=== PATIENT | male | born 1945 | race Caucasian/White ===

== ENCOUNTER 2017-12-11 04:25 | Emergency (ER) | payer MEDICARE ==
[~2017-12-11 04:25] MED LIST: ASPI-555 PO; ATOR80TA PO; FURO20TA4 PO; METF500T6 PO; METO-408 PO; VALS80TA2 PO
[2017-12-11] MEDS ORDERED: TETANUS/DIPHTHERIA TOXOID [ADULT] 0.5 ML VIAL IM ONE (05:04)
[2017-12-11] MEDS ORDERED: LIDOCAINE HCL 2% 20ML ONE (06:27)
== END 2017-12-11 07:47 | disposition home or self-care (01) ==
LOC: EDH 04:25
DX: S01.21XA Laceration without foreign body of nose, initial encounter (principal); S81.011A Laceration without foreign body, right knee, initial encounter; S80.212A Abrasion, left knee, initial encounter; E11.9 Type 2 diabetes mellitus without complications; I10 Essential (primary) hypertension; I25.10 Atherosclerotic heart disease of native coronary artery without angina pectoris; Z95.818 Presence of other cardiac implants and grafts; W18.39XA Other fall on same level, initial encounter; Y93.01 Activity, walking, marching and hiking; Y92.89 Other specified places as the place of occurrence of the external cause; Y99.8 Other external cause status
CPT/HCPCS: 12001; 12011; 70450; 70486; 71045; 72125; 90471; 90714; 99284; J3490

== ENCOUNTER → 2017-12-12 | Outpatient (CLI) | payer MEDICARE | END | disposition home or self-care (01) | LOC: RAH 15:49 | PROVIDERS: ATTEND Internal Medicine | DX: S80.01XA Contusion of right knee, initial encounter (principal); I70.90 Unspecified atherosclerosis; M17.11 Unilateral primary osteoarthritis, right knee; I10 Essential (primary) hypertension; E11.9 Type 2 diabetes mellitus without complications; E78.5 Hyperlipidemia, unspecified; X58.XXXA Exposure to other specified factors, initial encounter; Y93.89 Activity, other specified; Y92.89 Other specified places as the place of occurrence of the external cause; Y99.8 Other external cause status | CPT/HCPCS: 73562 ==

== ENCOUNTER 2017-12-19 00:58 | Emergency (ER) | payer MEDICARE ==
[~2017-12-19] VITALS: Ht 188 cm; Wt 126.1 kg
[2017-12-19 01:24] LABS: EOSINOPHILS % (AUTO) 2.2 % (0.0-8.0); HEMATOCRIT 44.6 % (42-54); LYMPHOCYTES % (AUTO) 12.7 % (21.0-51.0); MEAN CORPUSCULAR HEMOGLOBIN 29.6 pg (27.0-33.0); MEAN CORPUSCULAR HGB CONC 33.3 g/dL (32.0-36.0); MEAN CORPUSCULAR VOLUME 88.7 fL (79-99); MONOCYTES % (AUTO) 12.6 % (3.0-13.0); NEUTROPHILS % (AUTO) 71.5 % (40.0-77.0); PLATELET COUNT (AUTO) 249 K/uL (130-400); RED BLOOD CELL COUNT(AUTO) 5.02 MIL/uL (4.50-6.20); RED CELL DISTRIBUTION WIDTH 14.5 % (11.0-15.5); WHITE BLOOD COUNT (AUTO) 8.4 K/uL (4.8-10.8)
[2017-12-19 01:31] LABS: CREATININE 1.3 mg/dL (0.5-1.5)
[2017-12-19 01:35] LABS: INR 1.25 (0.85-1.15); PARTIAL THROMBOPLASTIN TIME 32.9 SEC (26.3-35.5); PROTHROMBIN TIME 13.1 SEC (9.6-11.6)
[2017-12-19 01:36] LABS: ALBUMIN 3.3 g/dL (3.5-5.0); BILIRUBIN,TOTAL 0.6 mg/dL (0.2-1.0); TOTAL PROTEIN, SERUM 7.8 g/dL (6.0-8.3)
[2017-12-19] MEDS ORDERED: OXYMETAZOLINE HCL SPRAY 15 ML BOTTLE ONE (01:37)
[2017-12-19] MEDS ORDERED: PHYTONADIONE 10 MG/1 ML AMP SQ SCH (06:20)
[2017-12-19] MEDS ORDERED: PHYTONADIONE 10 MG/1 ML AMP ONE (08:30)
== END 2017-12-19 08:41 | disposition home or self-care (01) ==
LOC: EDH 00:58
DX: S02.2XXA Fracture of nasal bones, initial encounter for closed fracture (principal); R04.0 Epistaxis; D68.9 Coagulation defect, unspecified; E11.9 Type 2 diabetes mellitus without complications; I10 Essential (primary) hypertension; I25.10 Atherosclerotic heart disease of native coronary artery without angina pectoris; I48.91 Unspecified atrial fibrillation; Z88.0 Allergy status to penicillin; Z79.84 Long term (current) use of oral hypoglycemic drugs; Z79.82 Long term (current) use of aspirin; Z79.2 Long term (current) use of antibiotics; Z79.899 Other long term (current) drug therapy; Z98.890 Other specified postprocedural states; W18.39XA Other fall on same level, initial encounter; Y93.89 Activity, other specified; Y92.89 Other specified places as the place of occurrence of the external cause; Y99.8 Other external cause status
CPT/HCPCS: 36415; 80053; 85025; 85610; 85730; 99284; J3430

== ENCOUNTER → 2017-12-30 | Outpatient (CLI) | payer MEDICARE ==
[~2017-12-30] MED LIST changes: +REGADENOSON 0.4 MG/5 ML PF SYG IVP SCH
== END | disposition home or self-care (01) ==
LOC: SHCH 09:11
PROVIDERS: ATTEND Internal Medicine Cardiovascular Disease
DX: I25.10 Atherosclerotic heart disease of native coronary artery without angina pectoris (principal); R07.9 Chest pain, unspecified; I10 Essential (primary) hypertension; E11.9 Type 2 diabetes mellitus without complications
CPT/HCPCS: 78452; 93017; 96374; A9500 ×2; J2785

== ENCOUNTER → 2020-01-26 | Outpatient (CLI) | payer MEDICARE ==
[~2020-01-26] MED LIST changes: -ASPI-555 PO; +ASPI-556 PO; +METF-444 PO; -METF500T6 PO; -REGADENOSON 0.4 MG/5 ML PF SYG IVP SCH
== END | disposition home or self-care (01) ==
LOC: SHCH 11:02
PROVIDERS: ATTEND Internal Medicine Cardiovascular Disease
DX: S80.12XA Contusion of left lower leg, initial encounter (principal); R22.43 Localized swelling, mass and lump, lower limb, bilateral; X58.XXXA Exposure to other specified factors, initial encounter; Y93.89 Activity, other specified; Y92.89 Other specified places as the place of occurrence of the external cause; Y99.8 Other external cause status
CPT/HCPCS: 93971

== ENCOUNTER → 2021-08-28 | Outpatient (CLI) | payer MEDICARE | END | disposition home or self-care (01) | LOC: RAH 12:33 | PROVIDERS: ATTEND Internal Medicine | DX: I11.9 Hypertensive heart disease without heart failure (principal); I08.8 Other rheumatic multiple valve diseases; I48.91 Unspecified atrial fibrillation; E11.9 Type 2 diabetes mellitus without complications; E78.5 Hyperlipidemia, unspecified; E66.9 Obesity, unspecified | CPT/HCPCS: 93306 ==

== ENCOUNTER → 2021-10-25 | Outpatient (CLI) | payer MEDICARE ==
[2021-10-25 11:40] LABS: ABG BASE EXCESS -1.8 mmol/L (-2.0-3.0); ABG HCO3 20.8 mmol/L (21.0-28.0); ABG OXYGEN SATURATION 96.1 % (95.0-99.0); ABG PCO2 30 mmHg (35-48)
[2021-10-25 11:52] LABS: ALBUMIN 3.2 g/dL (3.5-5.0); BILIRUBIN,TOTAL 3.2 mg/dL (0.2-1.0); CREATININE 1.3 mg/dL (0.5-1.5); POTASSIUM 3.7 mmol/L (3.5-5.1); TOTAL PROTEIN, SERUM 7.8 g/dL (6.0-8.3)
== END | disposition home or self-care (01) ==
LOC: LAB 10:47
PROVIDERS: ATTEND Internal Medicine Cardiovascular Disease
DX: I50.813 Acute on chronic right heart failure (principal)
CPT/HCPCS: 36415; 36600; 80053; 82803; 83880

== ENCOUNTER → 2021-12-18 | Outpatient (CLI) | payer MEDICARE | END | disposition home or self-care (01) | LOC: SHCH 13:38 | PROVIDERS: ATTEND Internal Medicine Cardiovascular Disease | DX: I87.2 Venous insufficiency (chronic) (peripheral) (principal) | CPT/HCPCS: 93970 ==

== ENCOUNTER → 2022-03-22 | Outpatient (CLI) | payer MEDICARE ==
[~2022-03-22] MED LIST changes: +IOHEXOL-350 75 ML VIAL IV ONE
== END | disposition home or self-care (01) ==
LOC: RAH 08:02
PROVIDERS: ATTEND Internal Medicine Cardiovascular Disease
DX: I50.82 Biventricular heart failure (principal); I51.7 Cardiomegaly; R18.8 Other ascites
CPT/HCPCS: 71270; Q9967

== ENCOUNTER 2022-04-25 05:39 | Observation (INO) | payer MEDICARE ==
[2022-04-23 10:56] LABS: BASOPHILS % (AUTO) 1.3 % (0.0-5.0); EOSINOPHILS % (AUTO) 3.8 % (0.0-8.0); MEAN CORPUSCULAR HEMOGLOBIN 28.9 pg (27.0-33.0); MEAN CORPUSCULAR HGB CONC 32.8 g/dL (32.0-36.0); MEAN CORPUSCULAR VOLUME 88.1 fL (79-99); MONOCYTES % (AUTO) 10.6 % (3.0-13.0); NEUTROPHILS % (AUTO) 69.5 % (40.0-77.0); PLATELET COUNT (AUTO) 190 K/uL (130-400); RED BLOOD CELL COUNT(AUTO) 5.22 MIL/uL (4.50-6.20); RED CELL DISTRIBUTION WIDTH 18.3 % (11.0-15.5); WHITE BLOOD COUNT (AUTO) 5.3 K/uL (4.8-10.8)
[2022-04-23 10:59] LABS: APPEARANCE,URINE CLEAR (CLEAR); BILIRUBIN,URINE NEGATIVE (NEGATIVE); COLOR,URINE LIGHT-YELLOW (YELLOW); GLUCOSE, URINE (UA) NEGATIVE (NEGATIVE); KETONES,URINE NEGATIVE (NEGATIVE); LEUKOCYTE ESTERASE ,URINE 75 Leu/uL (NEGATIVE); NITRATE,URINE NEGATIVE (NEGATIVE); PH,URINE 6.5 (5.0-8.0); PROTEIN,URINE NEGATIVE (NEGATIVE); UROBILINOGEN,URINE 0.2 mg/dL (0.2-1.0)
[2022-04-23 11:05] LABS: CREATININE 1.6 mg/dL (0.5-1.5); POTASSIUM 3.9 mmol/L (3.5-5.1)
[2022-04-23 11:12] LABS: INR 1.81 (0.85-1.15); PROTHROMBIN TIME 19.1 SEC (9.6-11.6)
[2022-04-23 11:13] LABS: PARTIAL THROMBOPLASTIN TIME 42.6 SEC (26.3-35.5)
[2022-04-23 11:27] LABS: B-TYPE NATRIURETIC PEPTIDE 877 pg/mL (0-100)
[2022-04-23 11:32] LABS: OTHER CASTS, URINE 1 /LPF (None Seen)
[2022-04-24 12:15] VITALS: BP 93/52
[~2022-04-25] VITALS: Ht 188 cm; Wt 135.4 kg
[2022-04-25] VITALS (18 sets, daily range): BP systolic 92–120; BP diastolic 51–82
[~2022-04-25 05:39] MED LIST changes: +0.9% NACL 500ML IV.SOLN 500 ML IV SCH; +ACET-2893 PO; -ASPI-556 PO; +ATOR40TA69 PO; -ATOR80TA PO; -FURO20TA4 PO; -IOHEXOL-350 75 ML VIAL IV ONE; +LOSA25TA41 PO; +POTA10CA44 PO; +RIVA20TA PO; +TORS20TA4 PO; -VALS80TA2 PO
[2022-04-25] MEDS ORDERED: 0.9%NACL 1000ML 1,000 ML IV ONE (06:23)
[2022-04-25] MEDS: [UNRECOGNIZED DRUG - OTHER] IV SCH ×2 (07:30→19:10)
[2022-04-25] MEDS: EPOPROSTENOL SODIUM IV SCH ×2 (07:30→19:10)
[2022-04-25] MEDS ORDERED: NITROGLYCERIN 50MG VIAL ONE (10:15)
[2022-04-25] MEDS ORDERED: LIDOCAINE HCL-MPF 2% 10ML AMP IJ ONE (10:16)
[2022-04-25] MEDS ORDERED: IOHEXOL 350 MG/ML 100ML INFUS..BTL IV ONE (10:19)
[2022-04-25] MEDS ORDERED: IOHEXOL-350 50ML VIAL IV ONE (10:19)
[2022-04-25] MEDS ORDERED: MIDAZOLAM HCL 1 MG/ML 2ML VIAL ONE (10:23)
[2022-04-25] MEDS ORDERED: FENTANYL CITRATE PF 50 MCG/1 ML 2ML VIAL ONE (10:23)
[2022-04-25] MEDS ORDERED: DEXTROSE 50%-WATER 50 ML DISP.SYRIN IV PRN (12:30)
[2022-04-25] MEDS: 0.9%NACL 10ML VIAL IVP SCH ×2 (12:30→20:30)
[2022-04-25] MEDS: INSULIN HUMULIN R 100 UNIT/ML 3ML SQ SCH ×2 (16:30→20:41)
[2022-04-25] MEDS ORDERED: TORS100T16 PO (18:37)
[2022-04-25] MEDS ORDERED: TORS20TA4 PO (18:37)
[2022-04-25] MEDS ORDERED: ACETAMINOPHEN 325 MG TAB PO PRN (19:00)
[2022-04-25] MEDS ORDERED: POTASSIUM CHLORIDE 10MEQ SR TAB PO ONE (19:22)
[2022-04-25] MEDS ORDERED: ATORVASTATIN 40 MG TABLET ONE (19:22)
[2022-04-25] MEDS ORDERED: TORSEMIDE 20 MG TAB ONE (19:27)
[2022-04-25] MEDS ORDERED: ATORVASTATIN 40 MG TABLET PO SCH (21:00)
[2022-04-25] MEDS ORDERED: POTASSIUM CHLORIDE 10MEQ SR TAB PO SCH ×2 (21:00)
[2022-04-25] MEDS ORDERED: TORSEMIDE 20 MG TAB PO SCH (21:00)
[2022-04-26] VITALS: BP 101/61
[2022-04-26] MEDS: 0.9%NACL 10ML VIAL IVP SCH (02:18)
[2022-04-26 04:00] VITALS: BP 94/67
[2022-04-26 05:09] LABS: BASOPHILS % (AUTO) 1.2 % (0.0-5.0); HEMATOCRIT 39.7 % (42-54); LYMPHOCYTES % (AUTO) 12.3 % (21.0-51.0); MEAN CORPUSCULAR HEMOGLOBIN 28.6 pg (27.0-33.0); MEAN CORPUSCULAR HGB CONC 33.8 g/dL (32.0-36.0); MEAN CORPUSCULAR VOLUME 84.8 fL (79-99); PLATELET COUNT (AUTO) 184 K/uL (130-400); RED BLOOD CELL COUNT(AUTO) 4.68 MIL/uL (4.50-6.20); RED CELL DISTRIBUTION WIDTH 18.5 % (11.0-15.5); WHITE BLOOD COUNT (AUTO) 5.8 K/uL (4.8-10.8)
[2022-04-26 05:25] LABS: CREATININE 1.6 mg/dL (0.5-1.5); POTASSIUM 3.9 mmol/L (3.5-5.1)
[2022-04-26] MEDS: INSULIN HUMULIN R 100 UNIT/ML 3ML SQ SCH (05:27)
[2022-04-26 08:00] VITALS: BP 95/56
[2022-04-26] MEDS ORDERED: LOSARTAN 25 MG TABLET PO SCH (09:00)
[2022-04-26] MEDS ORDERED: TORSEMIDE 20 MG TAB PO SCH (09:00)
[2022-04-26] MEDS ORDERED: METOPROLOL SUCCINATE 25 MG TAB.SR.24H PO SCH (09:00)
[2022-04-26] MEDS ORDERED: TORS100T16 PO ×2 (10:04)
== END 2022-04-26 11:05 | disposition home or self-care (01) ==
LOC: DAH 05:39 → DAHIP 05:40 → EDSTATUS 10:00 → 4DH 15:35
PROVIDERS: ADMIT Internal Medicine Cardiovascular Disease; ATTEND Internal Medicine Cardiovascular Disease
DX: I27.23 Pulmonary hypertension due to lung diseases and hypoxia (principal); J84.9 Interstitial pulmonary disease, unspecified; E11.9 Type 2 diabetes mellitus without complications; E78.5 Hyperlipidemia, unspecified; I11.0 Hypertensive heart disease with heart failure; I50.82 Biventricular heart failure; I48.20 Chronic atrial fibrillation, unspecified; E66.9 Obesity, unspecified; I87.313 Chronic venous hypertension (idiopathic) with ulcer of bilateral lower extremity; I07.1 Rheumatic tricuspid insufficiency; I25.10 Atherosclerotic heart disease of native coronary artery without angina pectoris; I25.2 Old myocardial infarction; I25.5 Ischemic cardiomyopathy; Z79.01 Long term (current) use of anticoagulants; Z79.899 Other long term (current) drug therapy; Z95.5 Presence of coronary angioplasty implant and graft
CPT/HCPCS: G0378 ×75; 36415; 71045; 80048; 80061; 81001; 82948; 83880; 85025; 85610; 85730; 87088; 93005; 93460; 99156; 99157; A4606; C1760; C1769; C1894; J1325; J1644; J2250; J3010; J3490; J7030; J7040; Q9967

== ENCOUNTER → 2022-05-16 | Outpatient (CLI) | payer MEDICARE ==
[~2022-05-16] MED LIST changes: -0.9% NACL 500ML IV.SOLN 500 ML IV SCH; +TORS100T16 PO; -TORS20TA4 PO
[2022-05-16 12:24] LABS: CREATININE 1.9 mg/dL (0.5-1.5); POTASSIUM 3.8 mmol/L (3.5-5.1)
== END | disposition home or self-care (01) ==
LOC: LAB 10:53
PROVIDERS: ATTEND Internal Medicine Cardiovascular Disease
DX: I50.813 Acute on chronic right heart failure (principal)
CPT/HCPCS: 36415; 80048; 83880

== ENCOUNTER → 2022-05-22 | Outpatient (CLI) | payer MEDICARE ==
[2022-05-22 12:24] LABS: POTASSIUM 4.1 mmol/L (3.5-5.1)
== END | disposition home or self-care (01) ==
LOC: LAB 09:28
PROVIDERS: ATTEND Internal Medicine Cardiovascular Disease
DX: I50.813 Acute on chronic right heart failure (principal)
CPT/HCPCS: 36415; 80048; 83880

== ENCOUNTER → 2022-06-10 | Outpatient (CLI) | payer MEDICARE ==
[~2022-06-10] MED LIST changes: -POTA10CA44 PO; +POTA10CA45 PO
[2022-06-10 12:02] LABS: POTASSIUM 3.7 mmol/L (3.5-5.1)
== END | disposition home or self-care (01) ==
LOC: LAB 09:45
PROVIDERS: ATTEND Internal Medicine Cardiovascular Disease
DX: I50.813 Acute on chronic right heart failure (principal)
CPT/HCPCS: 36415; 80048